=== PATIENT | female | born 1960 | race African-American/Black ===

== ENCOUNTER 2020-03-16 06:54 | Day surgery (SDC) | payer BC, OTHER ==
[2020-03-14 12:07] VITALS: BMI 29.3
[2020-03-16] MEDS ORDERED: EPINEPHrine 1:1,000 1 MG/1 ML - 30ML VIAL (INJECTION) ONE (07:36)
[2020-03-16] MEDS ORDERED: BUPIVACAINE HCL/PF 2.5 MG/ML - 30 ML VIAL IJ ONE (07:36)
[2020-03-16] MEDS ORDERED: ONDANSETRON 4 MG/2 ML VIAL IVPUSH PRN (08:04)
[2020-03-16] MEDS ORDERED: LACTATED RINGERS SOLUTION 1,000 ML IV SCH (08:15)
[2020-03-16] MEDS ORDERED: MIDAZOLAM HCL 2 MG/2 ML SINGLE DOSE VIAL ONE (09:07)
[2020-03-16] MEDS ORDERED: KETOROLAC TROMETHAMINE 30 MG/1 ML VIAL ONE (09:23)
[2020-03-16] MEDS ORDERED: LIDOCAINE HCL/PF 2% SDV 5ML VIAL ONE ×2 (09:23→09:46)
[2020-03-16] MEDS ORDERED: ONDANSETRON 4 MG/2 ML VIAL ONE ×2 (09:23→10:08)
[2020-03-16] MEDS ORDERED: DEXAMETHASONE SOD PHOSPHATE 4 MG/1 ML VIAL ONE (09:23)
[2020-03-16] MEDS ORDERED: ceFAZolin SODIUM 1 GM VIAL ONE (09:23)
[2020-03-16] MEDS ORDERED: BUPIVACAINE HCL/PF 0.25% (2.5MG/ML) 10 ML VIAL IJ ONE (09:30)
[2020-03-16] MEDS ORDERED: PROPOFOL 20 ML ONE ×3 (09:46→10:19)
[2020-03-16 10:49] VITALS: TEMP 97.9
[2020-03-16 12:01] VITALS: BP 104/58; PULSE 72
--- NOTE | 2020-03-16 14:28 | OP ---
DATE OF OPERATION: 03/16/2020 LOCATION: [facility]. SURGEON: Cyril Echeverria MD SPOOL TENDER: THUY Martines PREOPERATIVE DIAGNOSES: 1. Right knee medial and lateral meniscal tear. 2. Right knee cartilage injury. 3. Right knee synovitis. POSTOPERATIVE DIAGNOSES: 1. Right knee medial and lateral meniscal tear. 2. Right knee cartilage injury. 3. Right knee synovitis. PROCEDURE: 1. Right knee arthroscopy, partial medial meniscectomy, lateral meniscus. CPT code 76807. 2. Right knee arthroscopy with chondroplasty, abrasion plasty. CPT code 57345. 3. Right knee arthroscopy with synovectomy. CPT code 79078. FINDINGS: 1. Medial meniscus body, posterior horn tear, inner third. 2. Lateral meniscus anterior one-third from anterior horn to body inner third portion and separate body posterior horn tear inner one-third portion. 3. Synovitis, patellofemoral, medial and lateral notch area. 4. Central grade 2-4 cartilage injury medial femoral condyle and central grade 2-4 changes medial tibial plateau. Femoral condyle is 8 cm x 4 cm. Tibial plateau is 3 cm x 2 cm. 5. ACL and PCL intact. 6. Posterior grade 2-4 changes 6 cm x 2 cm in the strip from anterior to posterior, with grade 1-2 changes lateral tibial plateau. 7. Central one-third grade 2-4 changes patella and patellofemoral trochlea. PROCEDURE: Informed consent was obtained. The patient came to the operating room, where the lower extremity was prepped and draped in a sterile fashion. A tourniquet was placed on the upper thigh but not inflated. Using standard arthroscopic technique, a lateral incision and portal was made to allow for introduction of the camera into the suprapatellar bursa. This was then taken to the medial joint line, where under direct visualization, a medial incision and portal was made. Excessive synovium noted in the medial, lateral and patellofemoral and notch area was removed by an upbiter, shaver and Bovie cautery. This was found to bring in inflammatory tissue into the joint surface, a source of pain and dysfunction. Probing of the medial and lateral meniscus found tears, as described in the findings. These were removed with the upbiter and shaver and taken back to a stable rim. Grade 2 to 3 degenerative changes were treated with a chondroplasty, removing all flaking surfaces with low-setting Bovie along the periphery to prevent further flaking. Grade 4 changes, as noted, were treated with an abrasoplasty, creating a bleeding surface at the bone/cartilage interface. Aggressive debridement with shaver/evelina created bleeding surface. Micro fracture also done when indicated in findings. All areas of the knee were once again reexamined. The knee was then drained and a single suture was placed in all portals. A sterile dressing was placed and the patient was transferred to the recovery room without complication. The PA listed above was present and assisted at surgery. Their presence was absolutely medically necessary for the completion of the procedure. They helped hold the arthroscopy, pass instruments (and implants when indicated) and the procedure could not have been completed without their assistance. CYRIL ECHEVERRIA M.D. [id number]
--- NOTE | 2020-03-19 16:55 | PATH ---
Surgical Pathology Report Patient Name: DAKOTA RAMOS Med. Rec. #: [id number] /Age/Gender: 1960 (Age: 59) / F Account: [id number] Location: [facility] Taken: 03/16/2020 Received: 03/16/2020 Reported: 03/19/2020 Physicians: Cyril Casey M.D. Specimen(s) Received RIGHT KNEE MENISCUS SHAVINGS Clinical History Meniscus derangement right knee Final Diagnosis RIGHT KNEE MENISCUS SHAVINGS: SYNOVIAL TISSUE WITH CHRONIC INFLAMMATION AND REACTIVE CHANGE. SEPARATE FIBROCARTILAGINOUS TISSUE WITH FOCAL DEGENERATIVE CHANGE. Electronically Signed Genna Hyde M.D. Gross Description Received in formalin, labeled "right knee meniscus shavings," is a 4.5 x 4.2 x 0.3 cm. aggregate of srivastava-yellow soft tissue fragments. A truck sales representative portion is submitted in one cassette. /03/16/2020 saudi/03/16/2020
== END 2020-03-16 12:01 | disposition home or self-care (01) ==
LOC: FASU 06:54
PROVIDERS: ATTEND Orthopaedic Surgery
PROC: 0SBC4ZZ Excision of Right Knee Joint, Percutaneous Endoscopic Approach (ICD-10-PCS; 2020-03-16)
PROC: 0SBC4ZZ Excision of Right Knee Joint, Percutaneous Endoscopic Approach (ICD-10-PCS; 2020-03-16)
PROC: 0SBC4ZZ Excision of Right Knee Joint, Percutaneous Endoscopic Approach (ICD-10-PCS; principal; 2020-03-16 09:27)
DX: S83.241A Other tear of medial meniscus, current injury, right knee, initial encounter (principal); S83.281A Other tear of lateral meniscus, current injury, right knee, initial encounter; S83.8X1A Sprain of other specified parts of right knee, initial encounter; M65.861 Other synovitis and tenosynovitis, right lower leg; X58.XXXA Exposure to other specified factors, initial encounter; Y93.9 Activity, unspecified; Y92.9 Unspecified place or not applicable
CPT/HCPCS: 88304-TC; 94760